=== PATIENT | female | born 1935 | race Caucasian/White ===

== ENCOUNTER 2016-05-08 06:54 | Emergency (ER) | payer MEDICARE, BC ==
--- NOTE | ~2016-05-08 | ER ---
PATIENT'S NAME: CHARLES ENCINAS [facility] AGE: 80 Y [address] ROOM: [place] [address] LOCATION: ED ADMIT DATE: 05/08/2016 ER/Outpatient Report DISCHARGE DATE: 05/08/2016 FAMILY PHYSICIAN: Amaury Soto MD ATTENDING PHYSICIAN: Fantasma Fajardo CHIEF COMPLAINT: Unusual eye movements. HISTORY OF PRESENT ILLNESS: The patient was at dialysis this morning around 6 o'clock when she began to have unusual eye movements. Dialysis nurse reports that for approximately 14 minutes, the patient had unusual vjdj-an-ibqd eye movements which she described as rapid. The patient remained conscious throughout the episode, and in fact the nurse at Dialysis notes her blood pressure improved from 120s to 150s systolically during the incident. She states that she was a little bit dizzy during the onset today, but is otherwise feeling okay, and right now she has complete normal exam without complaints. She had a similar episode that lasted a little bit longer about 10 days to 2 weeks ago at dialysis during cannulation, which happened again today, associated with her reclining that provoked a similar episode. She does not have any further complaints at this time. She has no new medications. PAST MEDICAL HISTORY: Documented on the record and reviewed by me. SOCIAL HISTORY: Documented on the record and reviewed by me. MEDICATIONS: Documented on the record and reviewed by me. ALLERGIES: DOCUMENTED ON THE RECORD AND REVIEWED BY ME. REVIEW OF SYSTEMS: All systems reviewed and negative except as noted in the HPI. PHYSICAL EXAMINATION: VITAL SIGNS: Blood pressure 114/59, pulse 74, respiratory rate is 20, temperature 96.1, and SpO2 is 88% on room air. GENERAL: Age-appropriate female, in no obvious pain or distress, resting comfortably on the exam table. NEUROLOGIC: The patient is awake and alert. No obvious asymmetry on exam. The patient demonstrates minimal, fatigable, right-beating nystagmus one time PATIENT'S NAME: CHARLES ENCINAS [facility] Ramone [facility] AGE: 80 Y [address] ROOM: [place] [address] LOCATION: ED ADMIT DATE: 05/08/2016 ER/Outpatient Report DISCHARGE DATE: 05/08/2016 FAMILY PHYSICIAN: Amaury Soto MD ATTENDING PHYSICIAN: Fantasma Fajardo with no ability to reproduce it. She has appropriate saccades with skew testing, and she has smooth pursuit with head impulse and no saccades. She has no symptoms at this time. She has no difficulty with motion and no asymmetry on exam. No obvious cranial nerve deficits. HEENT: Normocephalic, atraumatic. The eyes are PERRL. The oropharynx is clear and moist with no erythema or exudate. NECK: Supple. Trachea is midline. CHEST: Heart has regular rate and rhythm with no obvious murmurs. Lungs are grossly clear to auscultation bilaterally with no rhonchi, wheezes, or rales. ABDOMEN: Soft, nontender, and nondistended. No rebound or guarding. EXTREMITIES: Warm and well perfused. The left forearm has a fistula with dialysis catheter cannulas in place, but capped and is otherwise without abnormality. SKIN: Warm, dry, and intact. LABS AND X-RAYS: Head CT was reported as normal per Radiology. Labs are notable for the following: Digoxin level of 1.39. Troponin below threshold. CK-MB of 2.7. Magnesium of 2.3. Phosphorus is 5.4. Sodium is 140, potassium 4.6, chloride 107, CO2 is 25, BUN is 50, creatinine 5.0, and GFR is 8. LFTs grossly unremarkable other than an alkaline phosphatase of 146. Free T4 of 1.3 and TSH 2.44. WBC 7.3, hemoglobin 11.3, and platelets of 204. INR is 2.9. EKG initially likely atrial fibrillation with multiform PVCs with significant baseline artifact. Repeat EKG is improved with rate-controlled atrial fibrillation with other PVCs. No other comparisons available. IMPRESSION: Likely inner ear dysfunction with nystagmus, resolved. EMERGENCY DEPARTMENT COURSE: The patient was evaluated. Her presentation is not particularly concerning for stroke. Her presentation is more consistent with inner ear dysfunction. She had fatigable symptoms that have spontaneously resolved. At this point in time, I do not see any obvious cause to her current presentation. I am recommending followup with PCP. We contacted the dialysis nurse to come remove the catheters, which was performed by her. The patient remained otherwise stable. She does need to dialyze either today or tomorrow with the dialysis clinic. They should call for those arrangements. All questions were answered, and the patient was discharged in good condition. FANTASMA FAJARDO MD PATIENT'S NAME: NINO PLATT [facility] AGE: 80 Y [address] ROOM: [place] [address] LOCATION: ED ADMIT DATE: 05/08/2016 ER/Outpatient Report DISCHARGE DATE: 05/08/2016 FAMILY PHYSICIAN: Amaury Soto MD ATTENDING PHYSICIAN: Fantasma Fajardo/anthony /[id number] d: 05/08/16 1401 t: 05/11/16 1733, OUTPATIENT REPORT
[~2016-05-08 06:54] MED LIST: ACULAR5 ML OPHTH; BIOTIN1000 MCG PO; CALCIUM ACETAT667 M1 PO; COSOPT DROPS 1010 ML OPHTH; COUMADIN ** IA5 MG PO; LANOXIN (DIGI125 MCG PO; LANTUS SOL100 UNIT/1 SUB-Q; LEVOTHROID (S125 MCG PO; NORVASC10 MG PO; NOVOLOG100 UNIT/M SUB-Q; OXYGEN M-15 INH; TRANDATE OR NO100 MG PO
[2016-05-08 07:42] LABS: BASOPHIL # 0.1 K/uL (0.0-0.2); BASOPHIL % 0.8 %; EOSINOPHIL # 0.1 K/uL (0.0-0.5); EOSINOPHIL % 1.4 %; HEMATOCRIT 37.8 % (30.0-46.0); HEMOGLOBIN 11.3 g/dL (10.0-15.0); IMMATURE GRANULOCYTE % 0.5 %; LYMPHOCYTE # 0.6 K/uL (0.8-4.0); LYMPHOCYTE % 8.4 %; MCH 30.4 pg (27.0-34.0); MCHC 29.9 gm/dL (32.0-36.5); MCV 101.6 fl (83.0-98.0); MONOCYTE # 0.8 K/uL (0.0-1.0); MONOCYTE % 10.2 %; NEUTROPHIL # (ANC) 5.8 K/uL (1.8-7.8); NEUTROPHIL % 78.7 %; NRBC % 0 /100WBC (0-0.00); PLATELET COUNT 204 K/uL (150-450); RBC 3.72 M/uL (3.00-5.00); RDW-CV 13.8 % (11.9-14.6); WBC 7.3 K/uL (4.0-11.0)
[2016-05-08 07:53] LABS: INR - (THERAPEUTIC) 2.9 (0.9-1.1); PROTIME 33.8 SECONDS (9.6-11.1); PTT 77 SECONDS (25-32)
[2016-05-08 07:58] LABS: ALBUMIN 3.5 gm/dL (3.5-5.0); ANION GAP 15.6 (10.0-19.0); CALCIUM 7.8 mg/dL (8.5-10.5); POTASSIUM 4.6 mMol/L (3.7-5.1); TOTAL BILIRUBIN 0.7 mg/dL (0.0-1.5); TOTAL PROTEIN 7.7 g/dL (6.0-8.4)
[2016-05-08 08:00] LABS: MAGNESIUM 2.3 mg/dL (1.3-2.6); PHOSPHORUS 5.4 mg/dL (2.5-4.9)
[2016-06-08] MEDS ORDERED: COUMADIN **IA2.5 MG PO ×2 (13:41→13:42)
[2016-06-08] MEDS ORDERED: PHOSLO667 MG PO (13:43)
[2016-06-08] MEDS ORDERED: LIDOCAINE-PRILO30 GM TOP (13:48)
[2016-06-08] MEDS ORDERED: ARTIFICIAL TEA3.5 G1 OPHTH (14:04)
[2016-06-08] MEDS ORDERED: ARTIFICIAL TEAR15 ML OPHTH (14:04)
[2016-06-08] MEDS ORDERED: NOVOLOG FL100 UNIT/1 SUB-Q (14:08)
[2016-06-25] MEDS ORDERED: NORCO 5-325 TA1 EACH PO (15:52)
== END 2016-05-08 09:34 | disposition disaster alternative care site (69) ==
LOC: GMED 06:54
PROVIDERS: Emergency Medicine
DX: H55.89 Other irregular eye movements (principal); Z79.01 Long term (current) use of anticoagulants

== ENCOUNTER 2016-06-09 08:04 | Outpatient (CLI) | payer MEDICARE, BC ==
[~2016-06-09] VITALS: Ht 165.1 cm; Wt 81.4 kg
--- NOTE | ~2016-06-09 | OR ---
PATIENT'S NAME: CHARLES ENCINAS [facility] AGE: 80 Y [address] 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 PROCEDURE: Diagnostic fistulogram. G[employer]ION PLANT OPERATOR: collaborative physician staff. 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 DESCRIPTION OF PROCEDURE: The patient was brought to the laborer sawmill, placed supine on the laborer sawmill table, prepped and draped in a sterile manner. Preoperative time-out was performed. We gained access to the radiocephalic fistula using ultrasound guidance, using a micropuncture needle, followed by micropuncture wire, followed by micropuncture sheath. We exchanged using Seldinger technique for a 4-Pashto short sheath. We performed a series of fistulogram through the sheath, it showed that the patient had an aneurysmal dilation, which was pseudo in nature coming from the posterior aspect, likely from a through and through puncture which occurred last week due to the sudden onset of the creation of the site. arterial anastomosis covered stent. We then performed a series of retrograde shots looking at the outflow and showed a large cephalic vein, which would be adequate for dialysis. We removed the sheath, held pressure for 5 minutes. The patient tolerated the procedure well. The patient will need a revision of her AV fistula with creation of new brachiocephalic. The patient tolerated the procedure well and transferred to the recovery room and then home later that day. KWAN RUEDA MD PATIENT'S NAME: CHARLES ENCINAS [facility] AGE: 80 Y [address] ROOM: [address] [place] [id number] [facility] ADMIT DATE: 06/09/2016 OR/Procedure Report DISCHARGE DATE: FAMILY PHYSICIAN: LIYAH HINOJOSA MD ATTENDING PHYSICIAN: KWAN RUEDA/anthony /[id number] d: 06/09/168 t: 06/10/16 1715, OPERATIVE SUMMARY
[~2016-06-09 08:04] MED LIST changes: +ARTIFICIAL TEA3.5 G1 OPHTH; +ARTIFICIAL TEAR15 ML OPHTH; +COUMADIN **IA2.5 MG PO; +LIDOCAINE-PRILO30 GM TOP; +NOVOLOG FL100 UNIT/1 SUB-Q; +PHOSLO667 MG PO
--- NOTE | 2016-06-09 09:02 | NUR ---
2 IV ATTEMPTS MADE PER V[facility] Edge RN
[2016-06-09 09:04] LABS: INR - (THERAPEUTIC) 1.29 (0.92-1.07); PROTIME 13.6 SECONDS (9.8-11.4)
[2016-06-25] MEDS ORDERED: NORCO 5-325 TA1 EACH PO (15:52)
== END 2016-06-09 12:10 | disposition disaster alternative care site (69) ==
LOC: GCAT 08:04 → GPCU 08:04 → GCAT 12:10
PROVIDERS: Surgery Vascular Surgery
PROC: B50WYZZ Plain Radiography of Dialysis Shunt/Fistula using Other Contrast (ICD-10-PCS; principal; 2016-06-09)
DX: Q27.39 Arteriovenous malformation, other site (principal)
CPT/HCPCS: C1769; J1644; J2250; J2720; J3010; J7030

== ENCOUNTER → 2016-06-11 | Outpatient (CLI) | payer MEDICARE, BC ==
[~2016-06-11] MED LIST changes: +NORCO 5-325 TA1 EACH PO
[2016-06-11 16:14] LABS: BASOPHIL % 0.5 %; EOSINOPHIL # 0.1 K/uL (0.0-0.5); EOSINOPHIL % 1.3 %; HEMATOCRIT 37.7 % (30.0-46.0); HEMOGLOBIN 11.2 g/dL (10.0-15.0); IMMATURE GRANULOCYTE % 0.3 %; LYMPHOCYTE # 0.9 K/uL (0.8-4.0); LYMPHOCYTE % 13.6 %; MCH 30.5 pg (27.0-34.0); MCHC 29.7 gm/dL (32.0-36.5); MCV 102.7 fl (83.0-98.0); MONOCYTE # 0.7 K/uL (0.0-1.0); MONOCYTE % 11.7 %; MPV 10.1 fl (9.4-12.4); NEUTROPHIL # (ANC) 4.6 K/uL (1.8-7.8); NEUTROPHIL % 72.6 %; NRBC % 0 /100WBC (0-0.00); PLATELET COUNT 183 K/uL (150-450); RBC 3.67 M/uL (3.00-5.00); RDW-CV 13.3 % (11.9-14.6); WBC 6.3 K/uL (4.0-11.0)
[2016-06-11 16:19] LABS: INR - (THERAPEUTIC) 1.31 (0.92-1.07); PROTIME 13.8 SECONDS (9.8-11.4)
[2016-06-11 16:38] LABS: ALBUMIN 3.5 gm/dL (3.5-5.0); ANION GAP 10.7 (10.0-19.0); CALCIUM 7.8 mg/dL (8.5-10.5); PHOSPHORUS 3.6 mg/dL (2.5-4.9); POTASSIUM 3.7 mMol/L (3.7-5.1)
[2016-06-11 16:41] LABS: CREATININE 4.1 mg/dL (0.5-1.1)
== END | disposition disaster alternative care site (69) ==
LOC: GOPD → GRAD
PROVIDERS: Nurse Practitioner
PROC: 05HM33Z Insertion of Infusion Device into Right Internal Jugular Vein, Percutaneous Approach (ICD-10-PCS; principal; 2016-06-11)
DX: N18.6 End stage renal disease (principal); Z99.2 Dependence on renal dialysis
CPT/HCPCS: C1750; J1642; J1644; J3010; J7030

== ENCOUNTER → 2016-06-25 | Day surgery (SDC) | payer MEDICARE, BC ==
[~2016-06-25] VITALS: Ht 165.1 cm; Wt 88.1 kg
--- NOTE | ~2016-06-25 | OR ---
PATIENT'S NAME: NINO PLATT [facility] AGE: 80 Y [address] ROOM: [place] [address] [place] [facility] [place] DATE: 06/25/2016 OR/Procedure Report DISCHARGE DATE: FAMILY PHYSICIAN: LIYAH HINOJOSA MD ATTENDING PHYSICIAN: ADA RUEDA SURGEON: Ada Rueda MD BOWLING ALLEY REFINISHER: DATE OF PROCEDURE: 06/25/2016 PREOPERATIVE DIAGNOSIS: End-stage renal disease. POSTOPERATIVE DIAGNOSIS: End-stage renal disease. PROCEDURE: Left arm radiocephalic AV fistula ligation with creation of a new brachiocephalic AV fistula. ANESTHESIA: General. ESTIMATED FLUID LOSS: 25 mL. THREAD CHECKER: OR staff. FINDINGS: No longer any flow in the radiocephalic. Strong radial and ulnar signal and a strong bruit in the new brachiocephalic fistula. DESCRIPTION OF PROCEDURE: The patient was brought to the operating room, placed supine on the operating room table, prepped and draped in a sterile manner. Preoperative time-out was performed. The patient received preoperative antibiotics. We made a standard incision 2 cm proximal to the antecubital fossa, dissected down the fascia, incised the fascia in a longitudinal manner. Dissected out the brachial artery. We then dissected out the cephalic vein in a 360-degree fashion. We then turned our attention to the proximal radiocephalic fistula. We made incision by the arterial anastomosis in a transverse manner, dissected the vein in a 360-degree fashion, and then suture ligated it with 0 Prolene. We then made a counter incision more distal on the vein with the aneurysmal segments returned to normal and then dissected that in a 360-degree fashion. We compressed the aneurysmal segments to remove any further blood and then suture ligated again with 0 Prolene. After completing this, we gave 5000 units of heparin. We transected the cephalic vein in the antecubital fossa. Made an arteriotomy after clamping on the brachial artery to a size of 4 mm. We did a standard 6- 0 Prolene anastomosis from the vein to the artery. We removed the clamps. There was excellent flow into the fistula. Flow was confirmed and the radial and ulnar signal. Heparin was reversed with protamine. All incisions were closed with interrupted nylon. The patient tolerated the procedure well, PATIENT'S NAME: NINO PLATT [facility] AGE: 80 Y [address] ROOM: [place] [address] [place] [facility] [place]: 06/25/2016 OR/Procedure Report DISCHARGE DATE: FAMILY PHYSICIAN: LIYAH HINOJOSA MD ATTENDING PHYSICIAN: ADA RUEDA transferred to recovery room, and then home later that day. ADA RUEDA MD FKM/modl /[id number] d: 06/25/16 2355 t: 06/27/16 0929, OPERATIVE SUMMARY
[2016-06-25 11:36] LABS: HEMATOCRIT 40.2 % (30.0-46.0); HEMOGLOBIN 12.3 g/dL (10.0-15.0); MCH 31.3 pg (27.0-34.0); MCHC 30.6 gm/dL (32.0-36.5); MCV 102.3 fl (83.0-98.0); MPV 10.2 fl (9.4-12.4); PLATELET COUNT 155 K/uL (150-450); RBC 3.93 M/uL (3.00-5.00); RDW-CV 13.7 % (11.9-14.6); WBC 5.5 K/uL (4.0-11.0)
[2016-06-25 11:47] LABS: INR - (THERAPEUTIC) 1.31 (0.92-1.07); PROTIME 13.8 SECONDS (9.8-11.4)
[2016-06-25 11:56] LABS: ALBUMIN 3.5 gm/dL (3.5-5.0); ANION GAP 11.6 (10.0-19.0); CALCIUM 8.4 mg/dL (8.5-10.5); CREATININE 3.8 mg/dL (0.5-1.1); POTASSIUM 4.6 mMol/L (3.7-5.1); TOTAL BILIRUBIN 0.8 mg/dL (0.0-1.5)
[2016-06-25 12:17] LABS: BANDED NEUTROPHIL # 0.1 K/uL (0.0-0.1); BANDED NEUTROPHILS % 1 %; LYMPHOCYTE # 0.8 K/uL (0.8-4.0); LYMPHOCYTE % 15 %; MONOCYTE # 0.6 K/uL (0.0-1.0); SEGMENTED NEUTROPHIL # 3.9 K/uL (1.8-7.8); SEGMENTED NEUTROPHIL % 71 %
== END | disposition disaster alternative care site (69) ==
LOC: GPOC 06-22 09:00 → GSDC 09:00
PROVIDERS: Surgery Vascular Surgery
PROC: 03LY0ZZ Occlusion of Upper Artery, Open Approach (ICD-10-PCS; principal; 2016-06-25)
PROC: 03180KD Bypass Left Brachial Artery to Upper Arm Vein with Nonautologous Tissue Substitute, Open Approach (ICD-10-PCS; 2016-06-25)
DX: I13.2 Hypertensive heart and chronic kidney disease with heart failure and with stage 5 chronic kidney disease, or end stage renal disease (principal); E11.22 Type 2 diabetes mellitus with diabetic chronic kidney disease; N18.6 End stage renal disease; I50.9 Heart failure, unspecified; I48.91 Unspecified atrial fibrillation; E03.9 Hypothyroidism, unspecified; Z88.0 Allergy status to penicillin; Z79.899 Other long term (current) drug therapy; Z79.4 Long term (current) use of insulin
CPT/HCPCS: J0690; J1644; J2405; J2720; J3010; J7030